=== PATIENT | male | born 1940 | race Caucasian/White ===

== ENCOUNTER 2018-10-18 09:37 | Emergency (ER) | payer MEDICARE, BC ==
--- NOTE | 2018-10-18 09:53 | ER Document Report ---
ED Medical Screen (RME) - General Chief Complaint: Rash Stated Complaint: RASH Time Seen by Provider: 10/18/18 09:47 Notes: 77-year-old male patient visiting here from [facility] and planning to return home soon. He developed a rash in the groin area about a week ago and has been trying several remedies including Nizoral, ketoconazole, triamcinolone, and hydrocortisone cream. He reports that the groin area started getting bad evening and there is itching, burning, and swelling. He is also noticed it behind his knees. He does not have diabetes. I have greeted and performed a rapid initial assessment of this patient. A comprehensive ED assessment and evaluation of the patient, analysis of test results and completion of the medical decision making process will be conducted by additional ED providers. TRAVEL OUTSIDE OF THE [place] IN LAST 30 DAYS: No - Related Data Allergies/Adverse Reactions: Penicillins Allergy (Verified 10/18/18 09:41)
--- NOTE | 2018-10-18 10:42 | ER Document Report ---
HPI - HPI Time Seen by Provider: 10/18/18 09:47 Pain Level: 4 Notes: Patient is a pleasant 77-year-old male who presents with chief complaint of red rash to his groin as well as the back of his knees. He states this is been going on for several days. He is here on vacation visiting family. He states he has tried using a couple of [id number] creams as well as a small amount of leftover triamcinolone cream that he had. Denies any fevers. Has not had a rash like this before. Did state that he sat for many hours on a car ride here and he thinks that it was caused by moisture. Past Medical History - General Information source: Patient - Social History Smoking Status: Never Smoker Chew tobacco use (# tins/day): No Drug Abuse: None Family History: Reviewed & Not Pertinent Patient has suicidal ideation: No Patient has homicidal ideation: No - Past Medical History Cardiac Medical History: Reports: Hx Hypertension Renal/ Medical History: Denies: Hx Peritoneal Dialysis Surgical Hx: Negative - Immunizations Immunizations up to date: Yes Vertical Provider Document - CONSTITUTIONAL Notes: PHYSICAL EXAMINATION: GENERAL: Well-appearing, well-nourished and in no acute distress. HEAD: Atraumatic, normocephalic. EYES: Pupils equal round extraocular movements intact, conjunctiva are normal. ENT: Nares patent NECK: Normal range of motion LUNGS: No respiratory distress Musculoskeletal: Normal range of motion NEUROLOGICAL: Normal speech, normal gait. PSYCH: Normal mood, normal affect. SKIN: Warm, Dry, normal turgor, erythematous rash noted to patient's bilateral posterior knees as well as groin area, scattered satellite lesions noted consistent with yeast rash.. - INFECTION CONTROL TRAVEL OUTSIDE OF THE [place] IN LAST 30 DAYS: No Course - Re-evaluation Re-evalutation: Patient's rash appears to have components of both yeast as well as fungus. Patient will be prescribed combo ointment that treats both types of rashes. Patient encouraged to let the rash air out whenever possible and sleep without underwear. Discharge - Discharge Clinical Impression: fungal rash, yeast rash Condition: Stable Disposition: HOME, SELF-CARE Additional Instructions: Please apply the cream to the affected areas 3 times daily. Allow the areas to be open to air as much as possible. Follow-up with your primary care provider when you get back to [place]. Prescriptions: Ketoconazole [Nizoral] 1 gm TP TID #60 cream.gm. Nystatin/Triamcin [Mycolog-II Ointment 15 gm] 1 applic TP TID #2 tube
[2018-10-18 10:53] VITALS: BP 158/77
== END 2018-10-18 10:51 | disposition home or self-care (01) ==
LOC: ER 09:37
DX: B36.9 Superficial mycosis, unspecified (principal); B37.2 Candidiasis of skin and nail
CPT/HCPCS: 99282